=== PATIENT | female | born 1995 | race Caucasian/White ===

== ENCOUNTER → 2016-12-09 | Outpatient (REF) ==
[~2016-12-09] MED LIST: PRENATAL PLUS PO; SYNTHROID0.075 MG/T PO
== END ==
LOC: WSOH 10:19 → WSPT 10:45
DX: Z02.1 Encounter for pre-employment examination (principal)

== ENCOUNTER → 2016-12-12 | Outpatient (REF) | LOC: WSOH 15:14 | DX: Z02.89 Encounter for other administrative examinations (principal) ==

== ENCOUNTER → 2016-12-12 | Outpatient (REF) | LOC: WSPT 13:01 | DX: Z01.89 Encounter for other specified special examinations (principal) ==

== ENCOUNTER 2016-12-30 03:33 | Emergency (ER) | payer OTHER ==
[~2016-12-30] VITALS: Ht 165.1 cm; Wt 69.1 kg
[2016-12-30 03:36] VITALS: TEMP 98.1
[2016-12-30] MEDS ORDERED: SYNTHROID0.075 MG/T PO (03:38)
[2016-12-30] MEDS ORDERED: PRENATAL PLUS PO (03:39)
[2016-12-30 04:44] LABS: BASO # 0.1 (0.0-0.2); BASO % 0.6 % (0.0-2.0); EOS # 0.2 (0.0-0.7); GRAN # 6.9 (1.4-6.5); GRAN % 64.1 % (42.2-75.2); HEMATOCRIT 37.9 % (37.0-47.0); HEMOGLOBIN 12.9 g/dl (12.5-16.0); LYMPH # 2.7 (1.2-3.4); LYMPH % 25.3 % (20.0-51.0); MEAN CELL VOLUME 93 fl (80.0-100.0); MEAN CORPUSCULAR HEMOGLOBIN 32 pg (27.0-31.0); MEAN CORPUSCULAR HGB CONC 34 g/dl (33.0-37.0); MEAN PLATELET VOLUME 10.3 fl (7.4-10.4); MONO # 0.8 (0.1-0.6); MONO % 7.4 % (1.7-9.3); PLATELET COUNT 176 K/mm3 (130-400); RED BLOOD COUNT 4.09 M/mm3 (4.10-5.30); REDCELL DISTRIBUTION WIDTH-CV 13.3 % (11.5-14.5); WHITE BLOOD COUNT 10.8 K/mm3 (4.8-10.8)
[2016-12-30 07:25] VITALS: BP 127/87; PULSE 99
== END 2016-12-30 07:54 | disposition short-term general hospital (02) ==
LOC: COL.ER 03:33
PROVIDERS: Emergency Medicine
DX: O45.92 Premature separation of placenta, unspecified, second trimester (principal); Z3A.23 23 weeks gestation of pregnancy
CPT/HCPCS: J7030

== ENCOUNTER → 2017-03-13 | Outpatient (REF) | LOC: WSOH 12:30 | DX: Z02.89 Encounter for other administrative examinations (principal) | CPT/HCPCS: G0463 ==

== ENCOUNTER → 2017-03-13 | Outpatient (REF) | LOC: WSOH 13:35 → WSPT 14:00 | DX: Z02.89 Encounter for other administrative examinations (principal) ==

== ENCOUNTER 2017-11-20 08:57 | Outpatient (CLI) | payer OTHER ==
[~2017-11-20] VITALS: Ht 165.1 cm; Wt 79.5 kg
[2017-11-20] MEDS ORDERED: ASPIRIN E.C. 8181 MG PO (09:11)
[2017-11-20 09:12] VITALS: BP 120/76; PULSE 86; TEMP 98.4
== END 2017-11-20 10:05 | disposition home or self-care (01) ==
LOC: LDRO 08:57 → LDR 10:00 → LDRO 10:05
DX: Z34.83 Encounter for supervision of other normal pregnancy, third trimester (principal); Z3A.28 28 weeks gestation of pregnancy
CPT/HCPCS: OP